=== PATIENT | male | born 1985 | race Caucasian/White ===

== ENCOUNTER 2021-01-16 00:55 | Emergency (ER) | payer OTHER ==
[~2021-01-16 00:55] MED LIST: AUGMENTIN 875-1 EACH PO; BENTYL10 MG PO; KEFLEX250 MG PO; MEDROL 4MG DOSEP4 MG PO; VENTOLIN HFA IN18 GM INH
== END 2021-01-16 02:20 | disposition home or self-care (01) ==
LOC: FER 00:55
DX: R41.82 Altered mental status, unspecified (principal); F17.210 Nicotine dependence, cigarettes, uncomplicated
CPT/HCPCS: 99284